=== PATIENT | female | born 1965 | race Caucasian/White ===

== ENCOUNTER 2018-11-23 17:37 | Emergency (ER) | payer OTHER, MEDICARE ==
[~2018-11-23] VITALS: Ht 160 cm; Wt 92.7 kg
[2018-11-23] MEDS ORDERED: OXYB5 PO (19:18)
[2018-11-23] MEDS ORDERED: VENL-67 PO (19:19)
[2018-11-23] MEDS ORDERED: GABA-531 PO (19:19)
[2018-11-23] MEDS ORDERED: LEVE250T55 PO (19:20)
[2018-11-23] MEDS ORDERED: MELA5TAB3 PO (19:21)
[2018-11-23] MEDS ORDERED: TOPI25 PO (19:22)
[2018-11-23] MEDS ORDERED: MET750 PO (19:22)
[2018-11-23] MEDS ORDERED: SENN-176 PO (19:23)
[2018-11-23 19:48] LABS: BASOPHILS % (AUTO) 0.8 % (0.0-2.0); EOSINOPHILS % (AUTO) 3.4 % (1.0-6.0); HEMATOCRIT 42.5 % (36-46); HEMOGLOBIN 14.3 g/dL (12.0-16.0); LYMPHOCYTES # (AUTO) 4.4 K/uL (1.0-4.8); LYMPHOCYTES % (AUTO) 40.1 % (22.0-44.0); MEAN CORPUSCULAR HEMOGLOBIN 30.4 pg (26.0-34.0); MEAN CORPUSCULAR HGB CONC 33.6 G/dL (31.0-37.0); MEAN CORPUSCULAR VOLUME 91 fL (80-100); MONOCYTES # (AUTO) 0.9 K/uL (0.1-1.0); NEUTROPHILS # (AUTO) 5.2 K/uL (1.8-7.7); NEUTROPHILS % (AUTO) 47.7 % (40.0-70.0); PLATELET COUNT (AUTO) 394 K/uL (150-450); RED BLOOD CELL COUNT(AUTO) 4.69 MIL/uL (4.00-5.20); RED CELL DISTRIBUTION WIDTH 13.3 % (11.5-14.5)
[2018-11-23 19:56] LABS: ANION GAP 10 mmol/L (8-16); CALCIUM, TOTAL 8.6 mg/dL (8.8-10.5); CARBON DIOXIDE 26 mmol/L (22-29); CHLORIDE 104 mmol/L (98-107); CREATININE 0.74 mg/dL (0.60-1.30); GLOMERULAR FILTR. RATE CALC > 60 mL/min (>60); GLUCOSE,RANDOM 93 mg/dL (70-110); POTASSIUM 3.8 mmol/L (3.5-5.1); SODIUM SERUM 140 mmol/L (136-145); UREA NITROGEN, BLOOD 16 mg/dL (7-18)
[2018-11-23 20:02] LABS: ALANINE AMINOTRANSFERASE 43 U/L (12-78); ALBUMIN 3.2 g/dL (3.4-5.0); ALKALINE PHOSPHATASE 104 U/L (46-116); ASPARTATE AMINOTRANSFERASE 20 U/L (15-37); BILIRUBIN,TOTAL 0.3 mg/dL (0.1-1.0); TOTAL PROTEIN, SERUM 7.2 g/dL (6.4-8.2)
[2018-11-23] MEDS ORDERED: LORazepam 2 MG TABLET PO ONE (21:15)
[2018-11-23] MEDS ORDERED: KETOROLAC TROMETHAMINE 60 MG/2 ML VIAL IM ONE (21:15)
[2018-11-23 22:09] VITALS: BP 126/77
[2018-11-26] MEDS ORDERED: GABA-533 PO (13:00)
[2018-11-26] MEDS ORDERED: LEVE500T53 PO (13:00)
== END 2018-11-24 00:12 | disposition home or self-care (01) ==
LOC: EMS 17:39
DX: F32.9 Major depressive disorder, single episode, unspecified (principal); G89.29 Other chronic pain; M79.604 Pain in right leg; M79.605 Pain in left leg; F41.9 Anxiety disorder, unspecified; F17.210 Nicotine dependence, cigarettes, uncomplicated; Z88.8 Allergy status to other drugs, medicaments and biological substances; Z79.899 Other long term (current) drug therapy
CPT/HCPCS: 36415; 80053; 85025; 96372; 99284; G0480; J1885